=== PATIENT | male | born 1970 | race Two or more races ===

== ENCOUNTER → 2020-05-09 | Day surgery (SDC) | payer BC ==
[~2020-05-09] VITALS: Ht 177.8 cm; Wt 83.9 kg
[~2020-05-09] MED LIST: Atropine Inj 1mg/10ml Syr IV PRN; DiphenhydrAMINE 50mg/ml Inj IVP PRN; LR 1000ml 1,000 ML IVLG SCH; LR 1000ml ONE; Lidocaine 1% MPF 10mg/ml 5ml ONE; Midazolam 2mg/2ml Inj IVP PRN; NASONEX17 GM NASAL; fentaNYL 100 mcg/2 mL IV PRN
--- NOTE | 2020-05-09 06:45 | Anethesia Preoperative Eval ---
Anesthesia Pre-op PMH/ROS General Date of Evaluation: May 09, 2020 Time of Evaluation: 06:43 Anesthesiologist: irina ASA Score: ASA 2 Mallampati Score Class I : Soft palate, uvula, fauces, pillars visible Class II: Soft palate, uvula, fauces visible Class III: Soft palate, base of uvula visible Class IV: Only hard plate visible Mallampati Classification: Class II Surgeon: katarina Diagnosis: colon screening Surgical Procedure: colonoscopy Anesthesia History: none Family History: no anesthesia problems Allergies: Coded Allergies: No Known Allergies (Unverified , 05/06/20) Medications: see eMAR Patient NPO?: Yes Past Medical History HEENT: Reports: other - sinusitis Anesthesia Pre-op Phys. Exam Physician Exam Last Vital Signs Date Time Temp Pulse Resp B/P (MAP) Pulse Ox O2 Delivery O2 Flow Rate FiO2 05/09/20 08:03 Room Air 05/09/20 08:01 97.9 80 18 134/79 99 Constitutional: NAD Neurologic: CN 2-12 intact Cardiovascular: RRR Respiratory: CTA Airway Exam Mallampati Score: Class II MO: limited Neck: flexible TMD: 2fb ROM: limited Anesthesia Pre-op A/P Studies Pre-op Studies: EKG - nsr, nstwa Risk Assessment & Plan Assessment: asa2 Plan: mac Status Change Before Surgery: No Pre-Antibiotics Drug: Gema Yoder MD May 09, 2020 06:44
[2020-05-09 08:01] VITALS: BP 134/79
--- NOTE | 2020-05-09 08:07 | Pre-Procedure Note/Attestation ---
Pre-Procedure Note/Attestation Complete Prior to Procedure Planned Procedure: not applicable Procedure Narrative: colonoscopy Indications for Procedure Pre-Operative Diagnosis: screening Attestation I attest that I discussed the nature of the procedure; its benefits; risks and complications; and alternatives (and the risks and benefits of such alternatives ), prior to the procedure, with the patient (or the patient's legal technical service representative). I attest that, if there was a reasonable possibility of needing a blood transfusion, the patient (or the patient's legal technical service representative) was given the [facility] standardized written summary, pursuant to the [place] Blood Safety Act ([place] Health and Safety Code # 1645, as amended). I attest that I re-evaluated the patient just prior to the surgery and that there has been no change in the patient's H&P, except as documented below: Dread Domingo MD May 09, 2020 08:07
--- NOTE | 2020-05-09 08:08 | Short Stay Surgery H&P ---
History of Present Illness History of Present Illness Chief Complaint screening colonoscopy HPI Fr Ricardo Diaz is a 49 year old male who was admitted on for Colonoscopy Screening Patient History Allergies: Coded Allergies: No Known Allergies (Unverified , 05/06/20) Review of Systems Cardiovascular: Reports: no symptoms Respiratory: Reports: no symptoms Skeletal: Reports: no symptoms Gastrointestinal: Reports: no symptoms Genitourinary: Reports: no symptoms Neurologic: Reports: no symptoms Endocrine: Reports: no symptoms Hematologic: Reports: no symptoms Physical Exam Vital Signs Last Vital Signs Date Time Temp Pulse Resp B/P (MAP) Pulse Ox O2 Delivery O2 Flow Rate FiO2 05/09/20 08:03 Room Air 05/09/20 08:01 97.9 80 18 134/79 99 Skin: normal HENT: normal Heart: normal Lungs: normal Abdomen: normal Extremities: normal Plan Plan of Care colonoscopy Attestation Are the patient's medical conditions optimized for surgery? Attestation Response: yes Dread Domingo MD May 09, 2020 08:08
--- NOTE | 2020-05-09 09:05 | Endoscopy Procedure Note ---
Endoscopy Procedure Note General Indication for Procedure: screening Procedures Performed: colonoscopy Operative Findings/Diagnosis: hemorrhoids Specimen: none Pt Tolerated Procedure Well: Yes Estimated Blood Loss: none Anesthesia Anesthesiologist: comfort Anesthesia: MAC Inserted Devices Implant(s) used?: No Quality Quality of Bowel Preparation: Good Did scope reach the cecum?: Yes Was there any complications?: No GI Core Measures 50 yrs or older w/o bx or poly: No 10yrs. F/U recommended: Yes If not recommended, why?: Above average risk 18 years or older w/prev. colo: No Dread Domingo MD May 09, 2020 09:05
[2020-05-09 09:35] VITALS: BP 117/67
[2020-05-09 09:40] VITALS: BP 113/74
[2020-05-09 09:45] VITALS: BP 109/75
--- NOTE | 2020-05-09 09:47 | Immediate Post-Op Evaluation ---
Immediate Post-Op Evalulation Immediate Post-Op Evalulation Procedure: colonoscopy w/bx Date of Evaluation: May 09, 2020 Time of Evaluation: 09:47 IV Fluids: 500ml lr Blood Products: none Estimated Blood Loss: negligible Blood Pressure Systolic: 117 Blood Pressure Diastolic: 67 Pulse Rate: 76 Respiratory Rate: 18 O2 Sat by Pulse Oximetry: 100 Temperature (Fahrenheit): 97.5 Pain Score (1-10): 0 Nausea: No Vomiting: No Complications none Patient Status: awake, reacts, patent Hydration Status: adequate Drug: Gema Yoder MD May 09, 2020 09:47
--- NOTE | 2020-05-09 09:49 | 48 Hour Post Anesthesia Eval ---
Post Anesthesia Evaluation Procedure: colonoscopy w/bx Date of Evaluation: May 09, 2020 Time of Evaluation: 09:49 Blood Pressure Systolic: 110 0: 76 Pulse Rate: 76 Respiratory Rate: 18 Temperature (Fahrenheit): 97.5 O2 Sat by Pulse Oximetry: 100 Airway: patent Nausea: No Vomiting: No Pain Intensity: 0 Hydration Status: adequate Cardiopulmonary Status: stable Mental Status/LOC: patient returned to baseline Post-Anesthesia Complications: none Follow-up care needed: N/A Gema Miranda MD May 09, 2020 09:49
[2020-05-09 10:00] VITALS: BP 116/71
[2020-05-09 10:05] VITALS: BP 118/78
--- NOTE | 2020-05-09 14:00 | Procedure Note ---
DATE OF PROCEDURE: 05/09/2020 SURGEON: Dread Domingo M.D. REFERRING PHYSICIAN: Roman Stern D.O. PROCEDURE: Colonoscopy with snare polypectomy and biopsy. ANESTHESIA: Per Dr. Isidro. INSTRUMENT: Olympus adult flexible colonoscope. INDICATION: Screening colonoscopy. REASON FOR PROCEDURE: The procedure, risks, benefits, and possible consequences, including hemorrhage, aspiration, perforation and infection, and alternative treatments, were explained to the patient/legal guardian by Dr. Dread Domingo and the patient/legal guardian understood and accepted these risks. PROCEDURE IN DETAIL: After informed consent was obtained and the patient was adequately sedated, first rectal exam was performed, which was positive for internal hemorrhoids. Then, the scope was advanced from the rectum into the cecum, then subsequently to terminal ileum. Quality of prep was very good. The patient had one sessile polyp in the hepatic flexure area measured roughly about 7 mm, removed with hot snare polypectomy technique. The patient had one single diverticula in that region too. The patient had evidence of four polyps in the rectosigmoid area, all small, removed with the cold biopsy forceps technique. Retroflexion of rectum showed evidence of internal hemorrhoids. SUMMARY OF FINDINGS: 1. Total of 5 colonic polyps removed. See above for details. 2. One single diverticula seen in the hepatic flexure. 3. Internal hemorrhoids. RECOMMENDATIONS: Follow up pathology. Recommend repeat colonoscopy in 3 years given 5 polyps. I want to thank Dr. Roman Stern for this kind referral. Dread Domingo M.D. DR: TIMOTHY JOB#: [id number] CC: Roman Stern D.O.
== END | disposition home or self-care (01) ==
LOC: GAS 07:28
DX: Z12.11 Encounter for screening for malignant neoplasm of colon (principal); K63.5 Polyp of colon; K64.8 Other hemorrhoids; K57.10 Diverticulosis of small intestine without perforation or abscess without bleeding; D12.3 Benign neoplasm of transverse colon
CPT/HCPCS: 45380; 45385; 93005; 94003; J2704; J7120; 94150